=== PATIENT | female | born 1960 | race African-American/Black ===

== ENCOUNTER 2020-11-18 14:39 | Outpatient (REF) | payer MEDICARE, MEDICAID, SELFPAY | END 2020-11-18 14:40 | disposition home or self-care (01) | LOC: HO.LAB 14:39 | PROVIDERS: PCP Nurse Practitioner Primary Care; Visit Provider Internal Medicine | DX: Z79.01 Long term (current) use of anticoagulants (principal) | CPT/HCPCS: 99211 ==

== ENCOUNTER → 2020-11-25 15:31 | Outpatient (BNVA) | payer MEDICARE, MEDICAID, SELFPAY | PROVIDERS: PCP Internal Medicine Geriatric Medicine; Visit Provider Internal Medicine | DX: I48.20 Chronic atrial fibrillation, unspecified (principal); Z51.81 Encounter for therapeutic drug level monitoring; Z79.01 Long term (current) use of anticoagulants | CPT/HCPCS: 85610; 99211 ==

== ENCOUNTER → 2020-12-17 15:56 | Outpatient (BNVA) | payer MEDICARE, MEDICAID, SELFPAY | PROVIDERS: PCP Internal Medicine Geriatric Medicine; Visit Provider Internal Medicine | DX: I48.20 Chronic atrial fibrillation, unspecified (principal); Z51.81 Encounter for therapeutic drug level monitoring; Z79.01 Long term (current) use of anticoagulants | CPT/HCPCS: 85610; 99211 ==

== ENCOUNTER → 2021-01-13 15:58 | Outpatient (BNVA) | payer MEDICARE, MEDICAID, SELFPAY | PROVIDERS: PCP Nurse Practitioner Primary Care; Visit Provider Internal Medicine | DX: I48.20 Chronic atrial fibrillation, unspecified (principal); Z51.81 Encounter for therapeutic drug level monitoring; Z79.01 Long term (current) use of anticoagulants | CPT/HCPCS: 85610; 99211 ==

== ENCOUNTER → 2021-01-28 11:36 | Outpatient (BNVA) | payer MEDICARE, MEDICAID, SELFPAY | PROVIDERS: PCP Nurse Practitioner Primary Care; Visit Provider Internal Medicine | DX: I48.20 Chronic atrial fibrillation, unspecified (principal); Z51.81 Encounter for therapeutic drug level monitoring; Z79.01 Long term (current) use of anticoagulants | CPT/HCPCS: 85610; 99211 ==

== ENCOUNTER → 2021-02-25 11:31 | Outpatient (BNVA) | payer MEDICARE, MEDICAID, SELFPAY | PROVIDERS: PCP Nurse Practitioner Primary Care; Visit Provider Internal Medicine | DX: I48.20 Chronic atrial fibrillation, unspecified (principal); Z51.81 Encounter for therapeutic drug level monitoring; Z79.01 Long term (current) use of anticoagulants | CPT/HCPCS: 85610; 99211 ==

== ENCOUNTER → 2021-03-04 11:36 | Outpatient (BNVA) | payer MEDICARE, MEDICAID, SELFPAY | PROVIDERS: PCP Nurse Practitioner Primary Care; Visit Provider Internal Medicine | DX: I48.20 Chronic atrial fibrillation, unspecified (principal); Z79.01 Long term (current) use of anticoagulants; Z51.81 Encounter for therapeutic drug level monitoring | CPT/HCPCS: 85610; 99211 ==

== ENCOUNTER → 2021-04-06 11:45 | Outpatient (BNVA) | payer MEDICARE, MEDICAID, SELFPAY | PROVIDERS: PCP Nurse Practitioner Primary Care; Visit Provider Internal Medicine | DX: I48.20 Chronic atrial fibrillation, unspecified (principal); Z51.81 Encounter for therapeutic drug level monitoring; Z79.01 Long term (current) use of anticoagulants | CPT/HCPCS: 85610; 99211 ==

== ENCOUNTER → 2021-04-09 11:46 | Outpatient (BNVA) | payer MEDICARE, MEDICAID, SELFPAY | PROVIDERS: PCP Nurse Practitioner Primary Care; Visit Provider Internal Medicine | DX: I48.20 Chronic atrial fibrillation, unspecified (principal); Z51.81 Encounter for therapeutic drug level monitoring; Z79.01 Long term (current) use of anticoagulants | CPT/HCPCS: 85610; 99211 ==

== ENCOUNTER → 2021-04-21 11:37 | Outpatient (BNVA) | payer MEDICARE, MEDICAID, SELFPAY | PROVIDERS: PCP Nurse Practitioner Primary Care; Visit Provider Internal Medicine | DX: I48.20 Chronic atrial fibrillation, unspecified (principal); Z51.81 Encounter for therapeutic drug level monitoring; Z79.01 Long term (current) use of anticoagulants | CPT/HCPCS: 85610; 99211 ==

== ENCOUNTER → 2021-05-05 11:42 | Outpatient (BNVA) | payer MEDICARE, MEDICAID, SELFPAY | PROVIDERS: PCP Nurse Practitioner Primary Care; Visit Provider Internal Medicine | DX: I48.20 Chronic atrial fibrillation, unspecified (principal); Z51.81 Encounter for therapeutic drug level monitoring; Z79.01 Long term (current) use of anticoagulants | CPT/HCPCS: 85610; 99211 ==

== ENCOUNTER → 2021-06-09 11:33 | Outpatient (BNVA) | payer MEDICARE, MEDICAID, SELFPAY | PROVIDERS: PCP Nurse Practitioner Primary Care; Visit Provider Internal Medicine | DX: I48.20 Chronic atrial fibrillation, unspecified (principal); Z51.81 Encounter for therapeutic drug level monitoring; Z79.01 Long term (current) use of anticoagulants | CPT/HCPCS: 85610; 99211 ==

== ENCOUNTER → 2021-06-23 11:47 | Outpatient (BNVA) | payer MEDICARE, MEDICAID, SELFPAY | PROVIDERS: PCP Nurse Practitioner Primary Care; Visit Provider Internal Medicine | DX: I48.20 Chronic atrial fibrillation, unspecified (principal); Z51.81 Encounter for therapeutic drug level monitoring; Z79.01 Long term (current) use of anticoagulants | CPT/HCPCS: 85610; 99211 ==

== ENCOUNTER → 2021-07-21 10:55 | Outpatient (BNVA) | payer MEDICARE, MEDICAID, SELFPAY | PROVIDERS: PCP Nurse Practitioner Primary Care; Visit Provider Internal Medicine | DX: I48.20 Chronic atrial fibrillation, unspecified (principal); Z51.81 Encounter for therapeutic drug level monitoring; Z79.01 Long term (current) use of anticoagulants | CPT/HCPCS: 85610; 99211 ==

== ENCOUNTER → 2021-07-24 11:47 | Outpatient (BNVA) | payer MEDICARE, MEDICAID, SELFPAY | PROVIDERS: PCP Nurse Practitioner Primary Care; Visit Provider Internal Medicine | DX: I48.20 Chronic atrial fibrillation, unspecified (principal); Z51.81 Encounter for therapeutic drug level monitoring; Z79.01 Long term (current) use of anticoagulants | CPT/HCPCS: 85610; 99211 ==

== ENCOUNTER → 2021-07-28 11:46 | Outpatient (BNVA) | payer MEDICARE, MEDICAID, SELFPAY | PROVIDERS: PCP Nurse Practitioner Primary Care; Visit Provider Internal Medicine | DX: I48.20 Chronic atrial fibrillation, unspecified (principal); Z51.81 Encounter for therapeutic drug level monitoring; Z79.01 Long term (current) use of anticoagulants | CPT/HCPCS: 85610; 99211 ==

== ENCOUNTER → 2021-08-04 11:07 | Outpatient (BNVA) | payer MEDICARE, MEDICAID, SELFPAY | PROVIDERS: PCP Nurse Practitioner Primary Care; Visit Provider Internal Medicine | DX: I48.20 Chronic atrial fibrillation, unspecified (principal); Z51.81 Encounter for therapeutic drug level monitoring; Z79.01 Long term (current) use of anticoagulants | CPT/HCPCS: 85610; 99211 ==

== ENCOUNTER → 2021-08-11 11:39 | Outpatient (BNVA) | payer MEDICARE, MEDICAID, SELFPAY | PROVIDERS: PCP Nurse Practitioner Primary Care; Visit Provider Internal Medicine | DX: I48.20 Chronic atrial fibrillation, unspecified (principal); Z51.81 Encounter for therapeutic drug level monitoring; Z79.01 Long term (current) use of anticoagulants | CPT/HCPCS: 85610; 99211 ==

== ENCOUNTER → 2021-10-01 10:47 | Outpatient (BNVA) | payer MEDICARE, MEDICAID, SELFPAY | PROVIDERS: PCP Nurse Practitioner Primary Care; Visit Provider Internal Medicine | DX: I48.20 Chronic atrial fibrillation, unspecified (principal); Z79.01 Long term (current) use of anticoagulants; Z51.81 Encounter for therapeutic drug level monitoring | CPT/HCPCS: 85610; 99211 ==

== ENCOUNTER → 2022-02-02 11:42 | Outpatient (BNVA) | payer MEDICARE, MEDICAID, SELFPAY | PROVIDERS: PCP Nurse Practitioner Primary Care; Visit Provider Internal Medicine | DX: I48.20 Chronic atrial fibrillation, unspecified (principal); Z51.81 Encounter for therapeutic drug level monitoring; Z79.01 Long term (current) use of anticoagulants | CPT/HCPCS: 85610; 99211 ==

== ENCOUNTER → 2022-02-08 11:46 | Outpatient (BNVA) | payer MEDICARE, MEDICAID, SELFPAY | PROVIDERS: PCP Nurse Practitioner Primary Care; Visit Provider Internal Medicine | DX: I48.20 Chronic atrial fibrillation, unspecified (principal); Z79.01 Long term (current) use of anticoagulants; Z51.81 Encounter for therapeutic drug level monitoring | CPT/HCPCS: 85610; 99211 ==

== ENCOUNTER → 2022-02-11 11:22 | Outpatient (BNVA) | payer MEDICARE, MEDICAID, SELFPAY | PROVIDERS: PCP Nurse Practitioner Primary Care; Visit Provider Internal Medicine | DX: I48.20 Chronic atrial fibrillation, unspecified (principal); Z51.81 Encounter for therapeutic drug level monitoring; Z79.01 Long term (current) use of anticoagulants | CPT/HCPCS: 85610; 99211 ==

== ENCOUNTER → 2022-02-18 11:36 | Outpatient (BNVA) | payer MEDICARE, MEDICAID, SELFPAY | PROVIDERS: PCP Nurse Practitioner Primary Care; Visit Provider Internal Medicine | DX: I48.20 Chronic atrial fibrillation, unspecified (principal); Z51.81 Encounter for therapeutic drug level monitoring; Z79.01 Long term (current) use of anticoagulants | CPT/HCPCS: 85610; 99211 ==

== ENCOUNTER 2025-09-06 16:09 | Outpatient (REF) | payer MEDICARE, MEDICAID, SELFPAY ==
--- OUTSIDE RECORDS SUMMARY | 2025-09-03 19:00 | XMS_ITS | Encounter Summary ---
Author Organization [employer] Address [address] [place] [address] Care Team Providers Care Heel Sander Name Role Phone Queenie Martin MARLEN Primary Care Provider [phone] Reason for Referral * Imaging (Routine) - Authorized Specialty Diagnoses / Procedures Referred By Contac t Referred To Contact Radiology Diagnoses Cervical lymphadenopathy Procedures CT Soft Tissue Neck w/ Contrast Edelmira Aquino MD [address] [place] [phone] Phone: tel: fax: [facility] Referral ID Status Reason Start Date Expiration Date V isits Requested Visits Authorized [id number] Authorized 09/03/2025 09/03/2026 1 1 Encounter Details Date Type Department Care Team (Late st Contact Info) Description 09/03/2025 7:00 PM EDT Office Visit [facility] [address] [place] [phone] Edelmira Aquino MD [address] [place] [address] [phone] Moderate persistent asthma with acute exacerbation (Primary Dx); Cervical lymphadenopathy; RODRIGUES (dyspnea on exertion); Uncontrolled hypertension; COPD exacerbation (CMS/HCC) (HCC) Social History Tobacco Use Types Packs/Day Years Used Date Smoking Tobacco: Never Passive Smoke Exposure: Never Smokeless Tobacco: Never Alcohol Use Standard Drinks/Week Comments Not Currently 0 (1 standard drink = 0.6 oz pur e alcohol) Depression Answer Date Recorded Patient Health Questionnaire-9 Score 17 04/05/2025 Patient Health Questionnaire-9 Score 17 04/05/2025 Last PHQ-9: Questionnaire Data Not on file 0 04/05/2025 Housing Stability Answer Date Recorded What is your housing situation today? I have nir garibay 04/20/[address] you li ve. Do you have problems with any of the following? None of the above 04/20/2024 Food Insecurity Answer Date Recorded Within the past 12 months, y ou worried that your food would run out before you got money to buy more: Never True 04/20/2024 Within the past 12 months,th e food you bought just didn't last and you didn't have enough money to get more: Never True Transportation Answer Date Recorded In the past 12 months, has l ack of transportation kept you from medical appts, meetings, work or from getting things needed for daily living? No 04/20/2024 Utilities Answer Date Recorded In the past 12 months, has t he electric, gas, oil or water company threatened to shut off services in your home? No 04/20/2024 Depression Answer Date Recorded Patient Health Questionnaire-2 Score 4 04/05/2025 Internet Access Answer Date Recorded Internet Access Q1 Yes 03/29/2025 Internet Access Q2 Not on file 03/29/2025 Comments Unknown Sex and Gender Information Value Date Recorded Sex Assigned at Female 09/20/2022 10:19 AM EDT Legal Sex Female 10:19 AM EDT Gender Identity Female 09/20/2022 10:19 AM EDT Sexual Orientation Straight 09/20/2022 10 :19 AM EDT documented as of this encounter Last Filed Vital Signs Vital Sign Reading Time Taken Comments Blood Pressure 168/94 09/03/2025 6:59 PM EDT Pulse 68 09/03/2025 6:59 PM EDT Temperature 36.3 C (97.3 F) 09/03/2025 6:00 PM EDT Respiratory Rate 36 09/03/2025 6:00 PM EDT Oxygen Saturation 99% 09/03/2025 6:00 PM EDT Inhaled Oxygen Concentration - - Weight 72.6 kg (160 lb) 09/03/2025 6:00 PM EDT Height - - Body Mass Index 29.26 04/05/2025 1:38 PM EDT documented in this encounter Progress Notes * Beth Pfeiffer RN - 09/03/2025 7:00 PM EDT Pt arrived to walk in [place], states she has had ongoing shortness of breath and wheezing since the last time I was here Pt visibly short of breath with audible wheezing. States she has been checking O2 sats at home, and they have been running around 97%. Pt's RADHA elevated - 170/100, pt has history of high BP and reports she did take her BP med this am. States she has been using her inhaler with very little effect. Pt has family member with her, in triage room with head of bed elevated. Pt scheduled to see provider at 6 pm. * Edelmira Aquino MD - 09/03/2025 7:00 PM EDT SUBJECTIVE: Baltazar Guy is a 64 y.o. year old female who presents for Walk In Center/SOB. Denies recent illness, injury, or hospitalization. Acute Concerns: Patient here with her daughter for evaluation of progressive shortness of breath/RODRIGUES and dry cough for approximately 4 to 6 weeks. Her exercise tolerance is approximately half a block, she uses albuterol 3-4 times per day, she has not had any fever, no sputum production, no pleuritic chest pain andshe does not orthopnea. She denies smoking, using any recreational substances. Social History Social History Narrative Not on file Problem List[1] Family History[2] Review of Systems Constitutional: Positive for fatigue. Negative for chills and fever. HENT: Negative for congestion, ear pain, nosebleeds, rhinorrhea, sinus pressure, sore throat and trouble swallowing. Eyes: Negative for pain and discharge. Respiratory: Positive for cough, chest tightness and shortness of breath. Cardiovascular: Negative for chest pain, palpitations and leg swelling. Gastrointestinal: Negative for abdominal pain, blood in stool, constipation, diarrhea and nausea. Endocrine: Negative for polydipsia and polyuria. Genitourinary: Negative for dysuria, frequency, genital sores, pelvic pain and vaginal discharge. Musculoskeletal: Negative for back pain and neck pain. Skin: Negative for rash. Allergic/Immunologic: Negative for environmental allergies. Neurological: Negative for dizziness, seizures, weakness, light-headedness and headaches. Hematological: Negative for adenopathy. Psychiatric/Behavioral: Negative for agitation, behavioral problems, self-injury and suicidal ideas. OBJECTIVE: Vitals: 09/03/25 1859 BP: (!) 168/94 Pulse: 68 Resp: Temp: SpO2: Physical Exam HENT: Right Ear: Tympanic membrane and ear canal normal. Left Ear: Tympanic membrane and ear canal normal. Mouth/Throat: Mouth: Mucous membranes are moist. Pharynx: No oropharyngeal exudate or posterior oropharyngeal erythema. Eyes: Pupils: Pupils are equal, round, and reactive to light. Neck: Thyroid: Thyromegaly present. Cardiovascular: Rate and Rhythm: Regular rhythm. Pulses: Normal pulses. Heart sounds: Normal heart sounds. No murmur heard. Pulmonary: Breath sounds: Examination of the right-upper field reveals decreased breath sounds and wheezing. Examination of the left-upper field reveals decreased breath sounds and wheezing. Examination of the right-middle field reveals decreased breath sounds and wheezing. Examination of the left-middle field reveals decreased breath sounds and wheezing. Examination of the right-lower field reveals decreased breath sounds and wheezing. Examination of the left- lower field reveals decreased breath sounds and wheezing. Decreased breath sounds and wheezing present. Abdominal: General: Bowel sounds are normal. Palpations: Abdomen is soft. Tenderness: There is no abdominal tenderness. Musculoskeletal: General: Normal range of motion. Cervical back: Neck supple. Lymphadenopathy: Cervical: Cervical adenopathy (2 cm paratracheal, none mobile, nontender) present. Skin: General: Skin is warm. Neurological: General: No focal deficit present. Mental Status: She is alert and oriented to person, place, and time. Psychiatric: Mood and Affect: Mood normal. Behavior: Behavior normal. Problem List Items Addressed This Visit Moderate persistent asthma with acute exacerbation - Primary Rapid viral testing negative today, her O2 sat is within normal limits and patient is in not significant respiratory distress. Albuterol nebs x 1 today, continue every 4 hours as needed shortness of breath at home x 5 days then as needed only. Continue Breo twice daily Prednisone 40 mg today, continue Medrol pack at home Reminded to get CXR ordered by PCP last month I ordered labs to rule out CHF Relevant Medications albuterol (2.5 MG/3ML) 0.083% nebulizer solution 2.5 mg (Completed) predniSONE (Deltasone) tablet 40 mg (Completed) methylPREDNISolone (Medrol Dospak) 4 MG tablets Other Relevant Orders POCT Rapid Covid-19 BinaxNOW (Completed) Cervical lymphadenopathy Unknown reason, order CT scan of the neck and follow-up with PCP Relevant Orders CT Soft Tissue Neck w/ Contrast Uncontrolled hypertension Most likely related to asthma exacerbation No change in medications, follow-up with PCP Relevant Orders TSH with Reflex to Free T4 Other Visit Diagnoses RODRIGUES (dyspnea on exertion) Relevant Orders Basic Metabolic Panel B Type Natriuretic Peptide (BNP) COPD exacerbation (CMS/HCC) (HCC) Relevant Medications albuterol (2.5 MG/3ML) 0.083% nebulizer solution 2.5 mg (Completed) predniSONE (Deltasone) tablet 40 mg (Completed) insulin aspart FlexPen (NovoLOG) 100 UNIT/ML pen methylPREDNISolone (Medrol Dospak) 4 MG tablets pen needle 32G x 4 mm misc Follow Up: Medications Ordered Prior to Encounter[3] [1] Patient Active Problem List Diagnosis Benign hypertension Bilateral hearing loss Chest pain Chronic atrial fibrillation (CMS/HCC) (HCC) Chronic back pain Degeneration of lumbar intervertebral disc Depression Eczema Hyperlipidemia Left bundle branch block Moderate persistent asthma without complication Nonischemic cardiomyopathy (CMS/HCC) (HCC) Obesity Palpitations Recurrent major depression (CMS/HCC) SOBOE (shortness of breath on exertion) Spondylosis of lumbar spine Tinnitus Type 2 diabetes mellitus with hyperlipidemia (CMS/HCC) Long-term current use of opiate analgesic Asthma exacerbation Uncontrolled hypertension Moderate persistent asthma with acute exacerbation Cervical lymphadenopathy [2] No family history on file. [3] Current Outpatient Medications on File Prior to Visit Medication Sig Dispense Refill albuterol (2.5 MG/3ML) 0.083% nebulizer solution Take 3 mL (2.5 mg) by nebulization every 6 (six) hours if needed for wheezing. 75 mL 11 albuterol 108 (90 Base) MCG/ACT inhaler INHALE 2 PUFFS INTO THE LUNGS EVERY 4 TO 6 HOURS NEEDED 18 g 2 amLODIPine (Norvasc) 10 MG tablet TAKE 1 TABLET BY MOUTH EVERY DAY 90 tablet 3 atorvastatin (Lipitor) 40 MG tablet Take 1 tablet (40 mg) by mouth Once per day. 90 tablet 3 Blood Pressure kit 1 kit in the morning. 1 kit 0 carvedilol (Coreg) 12.5 MG tablet TAKE 1 TABLET (12.5 MG) BY MOUTH WITH BREAKFAST AND WITH EVENING MEAL. TAKE WITH FOOD. 180 tablet 1 Continuous Blood Gluc Structural [employer]ator Apprentice (FreeStyle Romel 2 [place]) device 1 each 5 (five) times a day. 1 each 0 Continuous Blood Gluc Sensor (FreeStyle Romel 2 Sensor) misc 1 each every 14 (fourteen) days. 6 each 3 D3 Super Strength 50 MCG (2000 UT) capsule TAKE 1 CAPSULE BY MOUTH EVERY DAY 90 capsule 3 Eliquis 5 MG tablet TAKE 1 TABLET BY MOUTH TWICE A DAY 60 tablet 2 empagliflozin (Jardiance) 25 MG Take 1 tablet (25 mg) by mouth Once per day. 90 tablet 3 fexofenadine (So) 180 MG tablet Take 1 tablet (180 mg) by mouth if needed each day (Allergies). 90 tablet 1 fluocinonide (Lidex) 0.05 % ointment Apply topically 2 times daily. As needed 60 g 1 fluticasone (Flonase) 50 MCG/ACT nasal spray Fluticasone Furoate-Vilanterol (Breo Ellipta) 200-25 MCG/ACT aerosol powder Inhale 1 each in the morning. 28 each 2 FREESTYLE LITE test strip TEST BLOOD SUGAR 2-3 TIMES DAILY 100 strip 11 gabapentin (Neurontin) 100 MG capsule Take 1 capsule once daily for 1 week, then 1 capsule twice daily for 1 week, then 1 capsule TID 90 capsule 1 HYDROcodone-acetaminophen (Roland) 10-325 MG tablet Take 1 tablet by mouth every 8 (eight) hours if needed for severe pain. Do not start before August 06, 2025. 84 tablet 0 hydrOXYzine HCl (Atarax) 25 MG tablet Take 1 tablet by mouth every 6 (six) hours. levalbuterol (Xopenex) 1.25 MG/3ML nebulizer solution INHALE 1 VIAL USING NEBULIZER EVERY FOUR TO SIX HOURS NEEDED 75 mL 0 losartan (Cozaar) 100 MG tablet Take 1 tablet (100 mg) by mouth Once per day. 90 tablet 1 melatonin 3 MG tablet metFORMIN XR (Glucophage-XR) 500 MG 24 hr tablet Take 2 tabs twice daily with meals. Do not crush, chew, or split. 360 tablet 1 Misc. Devices (Pulse Oximeter) [facility] [place] Used check oxygen level. If 92% or less, call 911 or go to hospital 1 each 0 montelukast (Singulair) 10 MG tablet TAKE 1 TABLET BY MOUTH EVERY DAY IN THE EVENING 90 tablet 3 Myrbetriq 25 MG 24 hr tablet Narcan 4 MG/0.1ML nasal spray Nebulizers misc 1 kit Every 4-6 hours as needed (wheezing/SOB). oxybutynin XL (Ditropan-XL) 10 MG 24 hr tablet Take 10 mg by mouth Once per day. sotalol AF (Betapace AF) 80 MG tablet Take 40 mg by mouth in the morning and 40 mg in the evening. Spacer/Aero-Holding Chambers (AeroChamber Mini Chamber) device tacrolimus (Protopic) 0.1 % ointment TRUEplus Lancets 33G mis TEST BLOOD SUGAR 2-3 TIMES DAILY 100 each 11 [DISCONTINUED] insulin aspart FlexPen (NovoLOG) 100 UNIT/ML pen Inject 4 Units under the skin with breakfast, with lunch, and with evening meal. 3 mL 0 [DISCONTINUED] pen needle 32G x 4 mm [facility] [place] Use as instructed TID 90 each 0 No current facility-administered medications on file prior to visit. documented in this encounter Miscellaneous Notes * Assessment & Plan Note - Edelmira Aquino MD - 09/03/2025 7:32 PM EDT Associated Problem(s): Cervical lymphadenopathy Unknown reason, order CT scan of the neck and follow-up with PCP * Assessment & Plan Note - Edelmira Aquino MD - 09/03/2025 7:32 PM EDT Associated Problem(s): Moderate persistent asthma with acute exacerbation Rapid viral testing negative today, her O2 sat is within normal limits and patient is in not significant respiratory distress. Albuterol nebs x 1 today, continue every 4 hours as needed shortness of breath at home x 5 days then as needed only. Continue Breo twice daily Prednisone 40 mg today, continue Medrol pack at home Reminded to get CXR ordered by PCP last month I ordered labs to rule out CHF * Assessment & Plan Note - Edelmira Aquino MD - 09/03/2025 7:30 PM EDT Associated Problem(s): Uncontrolled hypertension Most likely related to asthma exacerbation No change in medications, follow-up with PCP documented in this encounter Plan of Treatment Upcoming Encounters Date Type Department Care Team (Late st Contact Info) Description 09/19/2025 3:00 PM EDT Clinical Support [facility] [address] [place] [phone] Beba Cortez, RN [address] [place] [address] 10/08/2025 2:15 PM EST Office Visit [facility] MEDICINE [address] [place] [phone] Queenie Martin ANP [address] [place] [address] Scheduled Orders Name Type Priority Associated Diagnoses Orde r Schedule Basic Metabolic Panel Lab Routine RODRIGUES (dyspnea on exertion) Expected: 09/03/2025 (Approximate), Expires: 09/03/2026 B Type Natriuretic Peptide (BNP) Lab Routine RODRIGUES (dyspnea on exertion) Expected: 09/03/2025, Expires: 09/03/2026 TSH with Reflex to Free T4 Lab Routine Uncontrolled hypertension Expected: 09/03/2025 (Approximate), Expires: 09/03/2026 CT Soft Tissue Neck w/ Contrast Imaging Routine Cervical lymphadenopathy Expected: 09/03/2025 (Approximate), Expires: 09/03/2026 documented as of this encounter Procedures Procedure Name Priority Date/Time Associated Diagnosis Comments POCT RAPID COVID ANTIGEN Routine 09/03/2025 7:12 PM EDT Moderate persistent asthma with acute exacerbation documented in this encounter Results * POCT Rapid Covid-19 BinaxNOW (09/03/2025 7:12 PM EDT) Rapid COVID Ag Negative QC Media Lot # [id number] Lot# Expiration Date [id number] Swab 09/03/2025 7:12 PM EDT Edelmira Aquino MD POINT OF CARE TEST ENTER /EDIT ORDERABLES Final Result documented in this encounter Visit Diagnoses Diagnosis Moderate persistent asthma with acute exacerbation- Primary Cervical lymphadenopathy Enlargement of lymph nodes RODRIGUES (dyspnea on exertion) Other dyspnea and respiratory abnormality Uncontrolled hypertension COPD exacerbation (CMS/HCC) (HCC) Obstructive chronic bronchitis with exacerbation documented in this encounter Administered Medications Inactive Administered Medications - up to 3 most recent administrations Medication Order MAR Action Action Date Dose Rate Site albuterol (2.5 MG/3ML) 0.083% nebulizer solution 2.5 mg 2.5 mg, Nebulization, Once, On Tue09/03/25 at 1915, For 1 doseIndications:Moderate persistent asthma with acute exacerbation Given 09/03/2025 7:15 PM EDT 2.5 mg predniSONE (Deltasone) tablet 40 mg 40 mg, Oral, Once, On Tue09/03/25 at 1915, For 1 doseIndications:Moderate persistent asthma with acute exacerbation Given 09/03/2025 7:15 PM EDT 40 mg documented in this encounter Additional Health Concerns Assessment Noted Time PHQ-9 Depression Total Score: 17 025 2:34 PM EDT documented as of this encounter Care Teams Heel Sander Relationship Specialty Start Date End Date Queenie Martin ANP [address] [place] [phone] PCP - General Family Medicine 05/09/20 documented as of this encounter
--- OUTSIDE RECORDS SUMMARY | 2025-09-06 18:22 | XMS_ITS | Clinical Summary ---
Author Organization [employer] Address [address] [place] [address] Care Team Providers Care Armature Bander Name Role Phone Queenie Martin MARLEN Primary Care Provider [phone] Allergies Active Allergy Reactions Criticality Noted Date Comments Fish Allergy 12/01/2022 Other reaction(s): facial swelling, hives Lisinopril Cough 03/17/2011 Other 12/01/2022 Other reaction(s): congestion, sneezing Shellfish Allergy 12/01/2022 Other reaction(s): facial swelling, hives Dulaglutide Other 07/02/2024 Blurry vision Medications * This document contains information received from the source organization and may not represent a complete record from that organization. Spacer/Aero-Holdi ng Chambers (AeroChamber Mini Chamber) device Active fluticasone (Flonase) 50 MCG/ACT nasal spray Active hydrOXYzine HCl (Atarax) 25 MG tablet Take 1 tablet by mouth every 6 (six) hours. Active melatonin 3 MG tablet 022 Active Myrbetriq 25 MG 24 hr tablet Active Narcan 4 MG/0.1ML nasal spray Active oxybutynin XL (Ditropan-XL) 10 MG 24 hr tablet Take 10 mg by mouth Once per day. Active sotalol AF (Betapace AF) 80 MG tablet Take 40 mg by mouth in the morning and 40 mg in the evening. 022 Active levalbuterol (Xopenex) 1.25 MG/3ML nebulizer solutionIndicatio ns:Moderate persistent asthma without complication INHALE 1 VIAL USING NEBULIZER EVERY FOUR TO SIX HOURS NEEDED 75 mL 023 Active D3 Super Strength 50 MCG (1999 [place]) capsuleIndication s:Vitamin D deficiency TAKE 1 CAPSULE BY MOUTH EVERY DAY 90 capsule 3 023 Active Continuous Blood Gluc Mortar Maker (FreeStyle Romel 2 [place]) deviceIndications :Type 2 diabetes mellitus with hyperlipidemia (HCC) 1 each 5 (five) times a day. 1 each 023 Active Continuous Blood Gluc Sensor (FreeStyle Romel 2 Sensor) miscIndications:T ype 2 diabetes mellitus with hyperlipidemia (HCC) 1 each every 14 (fourteen) days. 6 each 3 023 Active Blood Pressure kitIndications:Be nign hypertension 1 kit in the morning. 1 kit 024 Active tacrolimus (Protopic) 0.1 % ointment 023 Active amLODIPine (Norvasc) 10 MG tabletIndications :Essential (primary) hypertension TAKE 1 TABLET BY MOUTH EVERY DAY 90 tablet 3 024 Active montelukast (Singulair) 10 MG tabletIndications :Moderate persistent asthma, uncomplicated TAKE 1 TABLET BY MOUTH EVERY DAY IN THE EVENING 90 tablet 3 024 Active albuterol (2.5 MG/3ML) 0.083% nebulizer solutionIndicatio ns:Exacerbation of persistent asthma, unspecified asthma severity Take 3 mL (2.5 mg) by nebulization every 6 (six) hours if needed for wheezing. 75 mL 11 025 2025 Active carvedilol (Coreg) 12.5 MG tablet TAKE 1 TABLET (12.5 MG) BY MOUTH WITH BREAKFAST AND WITH EVENING MEAL. TAKE WITH FOOD. 180 tablet 1 025 Active empagliflozin (Jardiance) 25 MGIndications:Typ e 2 diabetes mellitus with hyperlipidemia (HCC) Take 1 tablet (25 mg) by mouth Once per day. 90 tablet 3 025 2025 Active fexofenadine (So) 180 MG tabletIndications :Seasonal allergies Take 1 tablet (180 mg) by mouth if needed each day (Allergies). 90 tablet 1 025 Active atorvastatin (Lipitor) 40 MG tabletIndications :Type 2 diabetes mellitus with hyperlipidemia (HCC) Take 1 tablet (40 mg) by mouth Once per day. 90 tablet 3 025 Active fluocinonide (Lidex) 0.05 % ointmentIndicatio ns:Eczema, unspecified type Apply topically 2 times daily. As needed 60 g 1 025 Active albuterol 108 (90 Base) MCG/ACT inhalerIndication s:Moderate persistent asthma without complication INHALE 2 PUFFS INTO THE LUNGS EVERY 4 TO 6 HOURS NEEDED 18 g 2 025 Active Eliquis 5 MG tabletIndications :Chronic atrial fibrillation (CMS/HCC) ([facility]) TAKE 1 TABLET BY MOUTH TWICE A DAY 60 tablet 2 025 Active losartan (Cozaar) 100 MG tabletIndications :Hypertension associated with diabetes ([facility]) Take 1 tablet (100 mg) by mouth Once per day. 90 tablet 1 025 Active Fluticasone Furoate-Vilantero l (Breo Ellipta) 200-25 MCG/ACT aerosol powderIndications :Exacerbation of persistent asthma, unspecified asthma severity Inhale 1 each in the morning. 28 each 2 025 Active metFORMIN XR (Glucophage-XR) 500 MG 24 hr tabletIndications :Type 2 diabetes mellitus with hyperlipidemia (HCC) Take 2 tabs twice daily with meals. Do not crush, chew, or split. 360 tablet 1 025 Active Nebulizers misc 1 kit Every 4-6 hours as needed (wheezing/SOB). Active Misc. Devices (Pulse Oximeter) miscIndications:C OPD exacerbation (CMS/HCC) ([facility]) Used check oxygen level. If 92% or less, call 911 or go to hospital 1 each 025 Active TRUEplus Lancets 33G miscIndications:T ype 2 diabetes mellitus with hyperglycemia ([facility]) TEST BLOOD SUGAR 2-3 TIMES DAILY 100 each 025 Active FREESTYLE LITE test stripIndications: Type 2 diabetes mellitus with hyperglycemia ([facility]) TEST BLOOD SUGAR 2-3 TIMES DAILY 100 strip 025 Active insulin aspart FlexPen (NovoLOG) 100 UNIT/ML penIndications:CO PD exacerbation (CMS/HCC) ([facility]) Use tid AC meals according to sliding scale: 150-200: 2u 201-250: 4u 251-300: 6u 301-350: 8u 351-400:10u 401-450:12 U and call PCP 3 mL Active methylPREDNISolon e (Medrol Dospak) 4 MG tablets Follow schedule on package instructions 21 tablet 2024 Active pen needle 32G x 4 mm miscIndications:C OPD exacerbation (CMS/HCC) ([facility]) Use as instructed TID 90 each 2025 Active gabapentin (Neurontin) 100 MG capsuleIndication s:Chronic migraine without aura without status migrainosus, not intractable TAKE 1 CAPSULE BY MOUTH 3 TIMES DAILY 90 capsule 1 Active HYDROcodone-aceta minophen (Lansdale) 10-325 MG tabletIndications :Other chronic pain TAKE 1 TABLET BY MOUTH EVERY 8 HOURS NEEDED FOR SEVERE PAIN 84 tablet Active gabapentin (Neurontin) 100 MG capsuleIndication s:Chronic migraine without aura without status migrainosus, not intractable Take 1 capsule once daily for 1 week, then 1 capsule twice daily for 1 week, then 1 capsule TID 90 capsule 1 025 2024 Discontinued amoxicillin-clavu lanate (Augmentin) 875-125 MG tabletIndications :COPD exacerbation (CMS/HCC) ([facility]) Take 1 tablet by mouth 2 times daily for 7 days. Take with food 14 tablet 025 2024 HYDROcodone-aceta minophen (L[place]dale) 10-325 MG tabletIndications :Other chronic pain Take 1 tablet by mouth every 8 (eight) hours if needed for severe pain. Do not start before August 06, 2025. 84 tablet 025 2024 Discontinued predniSONE (Deltasone) 10 MG tabletIndications :COPD exacerbation (CMS/HCC) ([facility]) Take 4 tablets (40 mg) by mouth Once daily for 3 days, THEN 2 tablets (20 mg) Once daily for 4 days, THEN 1 tablet (10 mg) Once per day for 4 days, THEN 0.5 tablets (5 mg) Once per day for 4 days. 26 tablet 025 2024 insulin aspart FlexPen (NovoLOG) 100 UNIT/ML penIndications:CO PD exacerbation (CMS/HCC) ([facility]) Inject 4 Units under the skin with breakfast, with lunch, and with evening meal. 3 mL 025 2024 Discontinued(R eorder (will not trigger notification to Pharmacy)) pen needle 32G x 4 mm miscIndications:C OPD exacerbation (CMS/[facility]) ([facility]) Use as instructed TID 90 each 025 2024 Discontinued(R eorder (will not trigger notification to Pharmacy)) guaiFENesin-codei ne (Robitussin-AC) 100-10 MG/5ML syrupIndications: Cough in adult patient Take 10 mL by mouth if needed in the morning, at noon, in the evening, and at bedtime for cough for up to 5 days. 237 mL 025 2024 Hospital, Clinic, or Other Facility Administered Medication Ordered Dose Route Frequency Start Date End Date Status albuterol (2.5 MG/3ML) 0.083% nebulizer solution 2.5 mgIndications:Modera te persistent asthma with acute exacerbation 2.5 mg NEBULIZATION Once 09/03/2025 09/03/2025 Ended predniSONE (Deltasone) tablet 40 mgIndications:Modera te persistent asthma with acute exacerbation 40 mg PO Once 09/03/2025 09/03/2025 Ended Active Problems Problem Noted Date Diagnosed Date Moderate persistent asthma with acute exacerbati on 09/03/2025 Assessment & Plan (09/03/2025 7:32 PM EDT): Rapid viral testing negative today, her O2 [...] I ordered labs to rule out CHF Cervical lymphadenopathy 09/03/2025 Assessment & Plan (09/03/2025 7:32 PM EDT): Unknown reason, order CT scan of the neck and follow-up with PCP Asthma exacerbation 02/08/2025 Assessment & Plan (02/08/2025 4:03 PM EDT): Patient educated to avoid asthma triggers Prednisone 60 mg for 5 days prescribed albuterol solution for nebulization at home every 6 hours as needed prescribed Uncontrolled hypertension 02/08/2025 Assessment & Plan (09/03/2025 7:30 PM EDT): Most likely related to asthma exacerbation No change in medications, follow-up with PCP Assessment & Plan (02/08/2025 4:08 PM EDT): I advised low-sodium diet I will prescribe at office clonidine 0.2 mg stat after 45 minutes blood pressure improved to 182 /90 patient reports she feels okay no chest pain palpitations weakness, patient has a BP cuff at home I am asked to monitor blood pressure at home and if it is persistently high to report back or go to emergency room, she will come back in 1 weeks for nurse visit for BP check plan is if blood pressure persistently out of goal to add hydralazine 10 mg every 6 hours follow-up with PCP for a sooner appointment ED precautions were reviewed with patient if blood pressure is persistently higher than 160/100 or has red flag symptoms may need today emergency room pr call EMS Long-term current use of opiate analgesic 2023 Overview (11/28/2023): Frequent cancellations for EMERGENCY COMMUNICATIONS OFFICER appts Pt cancelled 12/07, 02/18, 03/09, 03/10 and NCNS 07/07 and 07/20 for EMERGENCY COMMUNICATIONS OFFICER Chest pain 12/01/2022 Chronic back pain 12/01/2022 Depression 12/01/2022 Moderate persistent asthma without complication 12/01/2022 Nonischemic cardiomyopathy (CMS/HCC) 12/01/2022 Overview (11/28/2023): Follows w/ cardiology Palpitations 12/01/2022 SOBOE (shortness of breath on exertion) 12/01/19 23 Spondylosis of lumbar spine 12/01/2022 Overview (12/01/2022): on MRI from 2007: L3-L4, L4-L5 and L5-S1 Type 2 diabetes mellitus with hyperlipidemia (CM S/HCC) 12/01/2022 Overview (11/28/2023): And HTN Overdue for eye exam Metformin 500mg 1 tab AM, 2 tabs PM Trulicity 1.5mg/wk On statin/ARB Not on ASA, is on eliquis Foot exam Chronic atrial fibrillation (CMS/HCC) 05/07/2021 Bilateral hearing loss 10/11/2017 Eczema 10/08/2013 Left bundle branch block 08/13/2009 Benign hypertension 1959 Overview (11/28/2023): Follows w/ cardiology, takes both sotalol and carvedilol, confirmed this w/ pharmacy and cards Carvedilol 12.5mg BID Sotalol 40mg BID Amlodipine 10mg qd Losartan 100mg every day (could not tolerate propranolol d/t resp sx) Degeneration of lumbar intervertebral disc 11/21 Hyperlipidemia 1959 Obesity 1959 Recurrent major depression 1959 Tinnitus 1959 Resolved Problems Problem Noted Date Diagnosed Date Resolved Date COVID-19 12/01/2022 11/28/2023 Encounters Date Type Department Care Team Description 09/05/2025 Refill [facility] [address] [place] [address] Queenie Martin ANP Other chronic pain 09/04/2025 Refill [facility] [address] [place] [address] Queenie Martin ANP Chronic migraine without aura without status migrainosus, not intractable 09/03/2025 7:00 PM EDT Office Visit [facility] [address] [place], [place] [phone] Edelmira Aquino MD Moderate persistent asthma with acute exacerbation (Primary Dx); Cervical lymphadenopathy; RODRIGUES (dyspnea on exertion); Uncontrolled hypertension; COPD exacerbation (CMS/HCC) (HCC) 09/02/2025 Telephone [facility] [address] [place] [phone] Jazmín Kaye, RN Status Check 08/30/[address] [facility] [address] [place] [address] Beba Cortez, FABIEN 08/30/2025 Telephone [facility] [address] [place] [phone] Queenie Martin ANP Appointment Request 08/15/2025 Orders Only [facility] [address] [place] [phone] Queenie Martin ANP Cough in adult patient (Primary Dx) 08/15/2025 Telephone [facility] [address] [place] [phone] Queenie Martin ANP Nurse Triage 08/14/2025 Travel 08/13/2025 Telephone [facility] [address] [place] [phone] Queenie Martin ANP chart prep 08/12/2025 Telephone [facility] [address] [place] [phone] Queenie Martin ANP Med Refill 08/11/2025 Refill [facility] [address] [place] [phone] Queenie Martin ANP Hypertension associated with diabetes ([facility]/HCC) 08/08/2025 Telephone [facility] [address] [place] [phone] Queenie Martin ANP Paperwork/Forms 08/07/[address] [facility] [address] [place] [address] Beba Cortez, RN Other chronic pain 08/07/2025 Refill [facility] [address] [place] [address] Queenie Martin ANP Type 2 diabetes mellitus with hyperglycemia (CMS/HCC) 08/06/2025 Telephone [facility] [address] [place] [phone] Queenie Martin ANP 08/05/2025 Telephone [facility] [address] [place] [address] Queenie Martin ANP 08/02/2025 Telephone [facility] [address] [place] [address] Queenie Martin ANP 08/02/[address] [facility] [address] [place] [address] Beba Cortez, FABIEN EMERGENCY COMMUNICATIONS OFFICER 08/02/2025 Telephone [facility] [address] [place] [address]j[address] [place] [address] Kimberly Loya RN Status Check 08/02/[address] [facility] [address] [place] [address] Beba Cortez, FABIEN EMERGENCY COMMUNICATIONS OFFICER 08/01/2025 Orders Only [facility] [address] [place] [address] [address] Queenie Martin ANP Other chronic pain 08/01/2025 Orders Only [facility] [address] [place] [address] [place] [address] Queenie Martin ANP COPD exacerbation (CMS/HCC) (Primary Dx) 07/19/2025 Telephone [facility] [address] [place] [address] Jazmín Kaye RN Respiratory Status Check 07/18/[address] [address] Queenie Martin ANP Nurse Triage 07/18/[address] [address] Queenie Martin ANP Appointment Request 07/16/2025 1:15 PM EDT Office Visit [address] [address] Queenie Martin ANP Hypertension associated with diabetes (CMS/HCC) (Primary Dx); Type 2 diabetes mellitus with hyperlipidemia (CMS/HCC) ; Nonischemic cardiomyopathy (CMS/HCC); Exacerbation of persistent asthma, unspecified asthma severity; Long-term current use of opiate analgesic 07/16/2025 Travel 07/16/2025 Refill [facility] [place] [address] Queenie Martin ANP Chronic atrial fibrillation (CMS/HCC) 07/11/[address] [phone] Queenie Martin ANP Nurse Triage 07/11/2025 Refill [facility] [address] [place] [phone] Queenie Martin ANP Moderate persistent asthma without complication 07/11/2025 Refill [facility] [address], [place] [phone] Beba Cortez RN Other chronic pain 07/10/[address] [facility] [address], [place] [phone] Queenie Martin ANP 06/11/[address] [facility] [address], [place] [phone] Queenie Martin ANP Other chronic pain from Last 3 Months Immunizations Immunization Administration Dates Next Due Influenza injectable quadriv alent IIV4 with preservative 08/23/2018,10/11/2017 Influenza injectable quadriv alent preservative free 12/23/2023,08/19/2021,12/12/2019,01/11,09/30/2015 Influenza, IIV3, injectable 09/30/2014, 3,08/20/2009 Influenza, Split (incl. maritza fied surface antigen) 10/08/2013 Pneumococcal Conjugate PCV 20 12/23/2023 Pneumococcal Polysaccharide PPSV23 07/21/2009 TD (adult), 2 Lf tetanus tox oid, preservative free, adsorbed 07/21/2009 Tdap 10/08/2013 Social History Tobacco Use Types Packs/Day Years [...] Orientation Straight 09/20/2022 10 :19 AM EDT Last Filed Vital Signs Vital Sign Reading Time Taken Comments Blood Pressure 168/94 09/03/2025 6:59 PM EDT Pulse 68 09/03/2025 6:59 PM EDT Temperature 36.3 C (97.3 F) 09/03/2025 6:00 PM EDT Respiratory Rate 36 09/03/2025 6:00 PM EDT Oxygen Saturation 99% 09/03/2025 6:00 PM EDT Inhaled Oxygen Concentration - - Weight 72.6 kg (160 lb) 09/03/2025 6:00 PM EDT Height 157.5 cm (5' 2 ) 04/05/2025 1:38 PM EDT Body Mass Index 29.26 04/05/2025 1:38 PM EDT Plan of Treatment Upcoming Encounters Date Type Department Care Team (Late st Contact Info) Description 09/19/2025 3:00 PM EDT Clinical Support [facility] [address] [place] [address] Beba Cortez, FABIEN [address] [place] [address] 10/08/2025 2:15 PM EST Office Visit [facility] [address] [place] [phone] Queenie Martin, ANP [address] [facility] [place] [address] Health Maintenance Due Date Last Done Comments CT Colonography 1959 FIT DNA/Cologuard 1959 FIT 1959 FOBT 1959 Sigmoidoscopy 1959 Eye Exam 1969 Mammogram 1999 Zoster Vaccines (1 of 2) 2009 HPV/Cotest 07/03/2015 Pap Smear 07/03/2015 07/03/2012 RSV Patients and Patients Aged 60 years or older (1 - Risk 60-74 years 1-dose series) 2019 Colonoscopy 05/11/2022 05/11/2012 Colorectal Cancer Screening 05/11/2022 Diabetes: Urine Protein Screening 03/12/2023 03/12/2022, 10/10/2020 Lipid Panel 03/12/2023 03/12/2022 DTaP/Tdap/Td Vaccines (2 - Td or Tdap) 10/08/2023 10/08/2013, 07/21/2009 Diabetes: Foot Exam 12/23/2024 12/23/2023, 4 COVID-19 Vaccine ( season) 2025 Influenza Vaccine (#1) 2025 4, 08/19/2021, 12/12/2019, Additional history exists Depression Monitoring 10/06/2025 04/05/2025, 025 Diabetes: Hemoglobin A1C 10/16/2025 025, 04/05/2025, 04/11/2024, Additional history exists SDOH Screening 03/29/2026 03/29/2025 Alcohol/Substance Use Screening 04/05/2026 04/05/2025 Tobacco Screening 07/16/2026 07/16/2025 Hepatitis C Screening Completed 12/25/2019 Pneumococcal Vaccine: 50+ Years Completed 12/23/2023, 07/21/2009 Cervical Cancer Screening Discontinued HIB Vaccines Aged Out No longer eligi ble based on patient's age to complete this topic HPV Vaccines Aged Out No longer eligi ble based on patient's age to complete this topic Hepatitis A Vaccines Aged Out No long er eligible based on patient's age to complete this topic Hepatitis B Vaccines Aged Out No long er eligible based on patient's age to complete this topic IPV Vaccines Aged Out No longer eligi ble based on patient's age to complete this topic Meningococcal B Vaccine Aged Out No l onger eligible based on patient's age to complete this topic Meningococcal Vaccine Aged Out No ammon fabienne eligible based on patient's age to complete this topic RSV under 20 months Aged Out No longe r eligible based on patient's age to complete this topic Rotavirus Vaccines Aged Out No longer eligible based on patient's age to complete this topic Procedures Procedure Name Priority Date/Time Associated Diagnosis Comments POCT RAPID COVID ANTIGEN Routine 09/03/2025 7:12 PM EDT Moderate persistent asthma with acute exacerbation POCT GLYCATED HEMOGLOBIN, TOTAL Routine 07/16/2025 1:43 PM EDT Type 2 diabetes mellitus with hyperlipidemia (CMS/HCC) POCT GLUCOSE Routine 07/16/2025 1:43 PM EDT Type 2 diabetes mellitus with hyperlipidemia (CMS/HCC) ALBUMIN, RANDOM URINE W/CREATININE Routine 03/12/2022 1:46 PM EDT LIPID PANEL, STANDARD Routine 03/12/2022 1:46 PM EDT ZZZ HISTORICAL HEPATITIS C ANTIBODY RFLX Routine 12/25/2019 1:30 PM EST HM PAP/HPV Routine 07/03/2012 HM COLONOSCOPY Routine 05/11/2012 from Last 3 Months or Most Recently Relevant to Health Maintenance Results * POCT Rapid Covid-19 BinaxNOW (09/03/2025 7:12 PM EDT) [facility] Rapid COVID Ag Negative QC Media Lot # [id number] Lot# Expiration Date [id number] Swab 09/03/2025 7:12 PM EDT Edelmira Aquino MD POINT OF CARE TEST ENTER /EDIT ORDERABLES Final Result * (ABNORMAL) POCT HGB A1C (07/16/2025 1:43 PM EDT) Pathologist [facility] Hemoglobin A1C 9.0(A) 4.0 - 5.7 % QC Media Lot # [id number] Lot# Expiration Date ,027 Blood 07/16/2025 1:43 PM EDT Queenie GEE POINT OF CARE TEST ENTER/EDIT OR DERABLES Final Result * POCT Glucose (07/16/2025 1:43 PM EDT) Pathologist [facility] Glucose Blood, POC 161 60 - 200 mg/dL QC Media Lot # [id number] Lot# Expiration Date 2705,026 Blood Capillary blood specimen / Unknown 07/16/2025 1:43 PM EDT Queenie GEE POINT OF CARE TEST ENTER/EDIT OR DERABLES Final Result * (ABNORMAL) ALBUMIN, RANDOM URINE W/CREATININE (03/12/2022 1:46 PM EDT) [facility] Microalbumin Urine 10.7 See Note: mg/dL [facility] Comment: Reference Range: Reference Range Not established Microalb/Creat Ratio 115(H) <30 mcg/mg creat [facility] Comment: The ADA defines abnormalities in albumin excretion as follows: Albuminuria Category Result (mcg/mg creatinine) Normal to Mildly increased <30 Moderately increased 30-299 Severely increased > OR = 300 The ADA recommends that at least two of three specimens collected within a 3-6 month period be abnormal before considering a patient to be within a diagnostic category. Creatinine, Urine 93 20 - 275 mg/dL [facility] 03/12/2022 1:46 PM EDT us Queenie GEE LAB URINE ORDERABLES Final Resul t [facility] [address] [phone], * (ABNORMAL) LIPID PANEL, STANDARD (03/12/2022 1:46 PM EDT) Chol/HDLC Ratio 4.3 <5.0 (calc) [facility] Cholesterol, Total 225(H) <200 mg/dL [facility] HDL Cholesterol 52 > OR = 50 mg/dL [facility] LDL Cholesterol 145(H) mg/dL (calc) [facility] Comment: Reference range: <100 Desirable range <100 mg/dL for primary prevention; <70 mg/dL for patients with CHD or diabetic patients with > or = 2 CHD risk factors. LDL-C is now calculated using the Lacie calculation, which is a validated novel method providing better accuracy than the Friedewald equation in the estimation of LDL-C. Mehdi ZALDIVAR et al. LAN. 2013;310(19): 5682-4468 (http://education.[employer].Naow/faq/UBR079) Non-HDL Cholesterol 173(H) <130 mg/dL (calc) [facility] Comment: For patients with diabetes plus 1 major ASCVD risk factor, treating to a non-HDL-C goal of <100 mg/dL (LDL-C of <70 mg/dL) is considered a therapeutic option. Triglycerides 152(H) <150 mg/dL [facility] 03/12/2022 1:46 PM EDT [facility] LAB BLOOD ORDERABLES Final Resul t Performing Organization Address [facility] Co de Phone Number [facility] [address] [place] [address], * HEPATITIS C ANTIBODY RFLX (12/25/2019 1:30 PM EST) HEPATITIS C ANTIBODY NONREACTIVE NONREACTIVE [facility] Comment: Antibodies to HCV not detected; does not exclude early acute HCV infection. 12/25/2019 1:30 PM EST Historical Provider MD HISTORICAL/NON ORDERABLE LABS Final Result Performing Organization Address [facility]/ZIP Co de Phone Number [facility] [address] [place] [address], [place] * Hm Pap Smear (07/03/2012) Pap Negative for intraephithelial lesion or malignancy Negative for intraephithelial lesion or malignancy, Other us Historical Provider HEALTH MAINTENANCE Final Result * Colonoscopy (05/11/2012) Colonoscopy Normal Normal us Historical Provider HEALTH MAINTENANCE Final Result from Last 3 Months or Most Recently Relevant to Health Maintenance Insurance [address] [place] [address] [facility] STANDARD MEDICARE [address] [place] [address] Care Teams Armature Bander Relationship Specialty Start Date End Date Queenie Martin ANP [address] [place] [address] PCP - General Family Medicine 05/09/20
--- OUTSIDE RECORDS SUMMARY | 2025-09-06 18:22 | XMS_ITS | Encounter Summary ---
Author Organization [employer] Address [address] [facility] [facility] [address] [address] 7t [place] [address] Care Team Providers Care Backroom Associate Name Role Phone Queenie Martin Primary Care Provider [phone] Reason for Visit * Reason Onset Date Comments Appointment Request 08/30/2025 Encounter Details Date Type Department Care Team ([facility] st Contact Info) Description 08/30/2025 Telephone [facility] MEDICINE [address] [place], [place] [phone] Queenie Martin ANP 230 [place], [place] [phone] Appointment Request Social History Tobacco Use Types Packs/Day Years [...] AM EDT documented as of this encounter Miscellaneous Notes * Telephone Encounter - Donte Rivera - 08/30/2025 10:59 AM EDT Tc from pt requesting to reschedule today's TRANSITIONS RN CARE COORDINATOR visit. Please contact pt at [phone]. documented in this encounter Plan of Treatment Upcoming Encounters Date Type Department Care Team ([facility] st Contact Info) Description 09/19/2025 3:00 PM EDT Clinical Support [facility] MED & PEDS 505 [place] [address] Beba Cortez, FABIEN 505 [place] [address] 10/08/2025 2:15 PM EST Office Visit [facility] MEDICINE [address] [place] [address] Queenie Martin ANP 230 [place] [address] documented as of this encounter Visit Diagnoses Not on filedocumented in this encounter Additional Health Concerns Assessment Noted Time PHQ-9 Depression Total Score: 17 025 2:34 PM EDT documented as of this encounter Care Teams Backroom Associate Relationship Specialty Start Date End Date Queenie Martin ANP [address] [place] [address] PCP - General Family Medicine 05/09/20 documented as of this encounter
--- OUTSIDE RECORDS SUMMARY | 2025-09-06 18:22 | XMS_ITS | Encounter Summary ---
Author Organization [employer] Address [address] 7t [place] [address] Care Team Providers Care Manager Digital Ad Operations Name Role Phone Queenie Martin Primary Care Provider [phone] Reason for Visit * Reason Comments Med Refill Encounter Details Date Type Department Care Team ([facility] st Contact Info) Description 08/11/2025 Refill [facility] MEDICINE 230 [place], [place] [phone] Queenie Martin ANP 230 [place] [address] Hypertension associated with diabetes (CMS/HCC) Social History Tobacco Use Types Packs/Day Years [...] AM EDT documented as of this encounter Plan of Treatment Upcoming Encounters Date Type Department Care Team (Late st Contact Info) Description 09/19/2025 3:00 PM EDT Clinical Support [facility] CHC MED & PEDS 505 [place] [address] Beba Cortez, RN 505 [place] [address] 10/08/2025 2:15 PM EST Office Visit [facility] MEDICINE [address] [place] [address] Queenie Martin ANP 230 [place] [address] documented as of this encounter Visit Diagnoses Diagnosis Hypertension associated with diabetes (HCC) Unspecified essential hypertension documented in this encounter Additional Health Concerns Assessment Noted Time PHQ-9 Depression Total Score: 17 025 2:34 PM EDT documented as of this encounter Care Teams Manager Digital Ad Operations Relationship Specialty Start Date End Date Queenie Martin ANP [address] [place] [address] PCP - General Family Medicine 05/09/20 documented as of this encounter
--- OUTSIDE RECORDS SUMMARY | 2025-09-06 18:22 | XMS_ITS | Encounter Summary ---
Author Organization [employer] Address [address] 7t [place] [address] Care Team Providers Care E Commerce Strategist Name Role Phone Queenie Martin Primary Care Provider [phone] Reason for Visit * Reason Comments Med Refill Encounter Details Date Type Department Care Team ([facility] st Contact Info) Description 09/05/2025 Refill [facility] MEDICINE 230 [place], [place] [phone] Queenie Martin ANP 230 [place] [address] Other chronic pain Social History Tobacco Use Types Packs/Day Years [...] encounter Miscellaneous Notes * Telephone Encounter - Kimberly Loya RN - 09/05/2025 4:11 PM EDT CAR DUMPER OPERATOR reviewed. PT last picked up 28 day supply of [place] 08/08/25. Earliest fill date today 09/05/25. Upcoming PROMOTIONAL REPRESENTATIVE visit scheduled for 09/19/25. Refill appropriate. Queued. documented in this encounter Plan of Treatment Upcoming Encounters Date Type Department Care Team (Late st Contact Info) Description 09/19/2025 3:00 PM EDT Clinical Support [facility] CHC MED & PEDS 505 [place] [address] Beba Cortez, RN 505 [place] [address] 10/08/2025 2:15 PM EST Office Visit [facility] MEDICINE 230 [place] [address] Queenie Martin ANP 230 [place] [address] documented as of this encounter Visit Diagnoses Diagnosis Other chronic pain documented in this encounter Additional Health Concerns Assessment Noted Time PHQ-9 Depression Total Score: 17 025 2:34 PM EDT documented as of this encounter Care Teams E Commerce Strategist Relationship Specialty Start Date End Date Queenie Martin ANP 230 [place] [address] PCP - General Family Medicine 05/09/20 documented as of this encounter
--- OUTSIDE RECORDS SUMMARY | 2025-09-06 18:22 | XMS_ITS | Encounter Summary ---
Author Organization [employer] Address [address] [facility] [address] [facility] [address] 7t [place] [address] Care Team Providers Care Salesperson Driver Name Role Phone Queenie Martin Primary Care Provider [phone] Reason for Visit * Reason Comments Med Refill Encounter Details Date Type Department Care Team ([facility] st Contact Info) Description 12/25/2024 Refill [facility] MEDICINE 230 [place], [place] [phone] Queenie Martin ANP 230 [place] [address] Type 2 diabetes mellitus with hyperlipidemia ([facility]/HCC) Social History Tobacco Use Types Packs/Day Years Used Date Smoking Tobacco: Never Passive Smoke Exposure: Never Smokeless Tobacco: Never Alcohol Use Standard Drinks/Week Comments Not Currently 0 (1 standard drink = 0.6 oz pur e alcohol) Depression Answer Date Recorded Patient Health Questionnaire-9 Score 6 04/20/2024 Patient Health Questionnaire-9 Score 6 04/20/2024 Last PHQ-9: Questionnaire Data Not on file 0 04/20/2024 Housing Stability Answer Date Recorded What is [...] Answer Date Recorded Patient Health Questionnaire-2 Score 1 04/20/2024 Comments Unknown Sex and Gender Information Value [...] Description 09/19/2025 3:00 PM EDT Clinical Support [facility] CH[facility] MED & PEDS 505 [place] [address] Beba Cortez, RN 505 [place] [address] 10/08/2025 2:15 PM EST Office Visit [facility] MEDICINE 230 [place] [address] Queenie Martin ANP 230 [place] [address] documented as of this encounter Visit Diagnoses Diagnosis Type 2 diabetes mellitus with hyperlipidemia (CMS/HCC) documented in this encounter Additional Health Concerns Assessment Noted Time PHQ-9 Depression Total Score: 6 04/20/20 24 1:23 PM EDT documented as of this encounter Care Teams Salesperson Driver Relationship Specialty Start Date End Date Queenie Martin ANP [address] [place] [address] PCP - General Family Medicine 05/09/20 documented as of this encounter
--- OUTSIDE RECORDS SUMMARY | 2025-09-06 18:22 | XMS_ITS | Encounter Summary ---
Author Organization [employer] Address [address] [address] 7[address] [place] [address] Care Team Providers Care Rating Officer Name Role Phone Queenie Martin Primary Care Provider [phone] Reason for Visit * Reason Comments Med Refill Encounter Details Date Type Department Care Team ([facility] st Contact Info) Description 09/04/[address] [facility] MEDICINE 230 [place], [place] [phone] Queenie Martin ANP 230 [place] [address] Chronic migraine without aura without status migrainosus, not intractable Social History Tobacco Use Types Packs/Day Years [...] Description 09/19/2025 3:00 PM EDT Clinical Support [facility] CHC MED & PEDS 505 [place] [address] Beba Cortez, RN 505 [place] [address] 10/08/2025 2:15 PM EST Office Visit [facility] MEDICINE [address] [place] [address] Queenie Martin ANP [address] [place] [address] documented as of this encounter Visit Diagnoses Diagnosis Chronic migraine without aura without status migrainosus, not intractable documented in this encounter Additional Health Concerns Assessment Noted Time PHQ-9 Depression Total Score: 17 025 2:34 PM EDT documented as of this encounter Care Teams Rating Officer Relationship Specialty Start Date End Date Queenie Martin ANP [address] [place] [address] PCP - General Family Medicine 05/09/20 documented as of this encounter
--- OUTSIDE RECORDS SUMMARY | 2025-09-06 18:23 | XMS_ITS | Encounter Summary ---
Author Organization [employer] Address [address] 7t [place] [address] Care Team Providers Care Leg Man Name Role Phone Queenie Martin Primary Care Provider [phone] Reason for Visit * Reason Onset Date Comments Nurse Triage 02/06/2025 Encounter Details Date Type Department Care Team (Late st Contact Info) Description 02/06/2025 Telephone [facility] MEDICINE 230 [place], [place] [phone] Queenie Martin ANP 230 [place] [address] Nurse Triage Social History Tobacco Use Types Packs/Day Years [...] encounter Miscellaneous Notes * Telephone Encounter - Darlin Sheth RN - 02/06/2025 1:41 PM EDT Triage call Pt reports cough for 2 weeks now with nasal congestion. Cough is producing yellow-greenphlegm and nasal drainage is yellow in color. Pt reports becoming breathless with coughing at times with some wheezing and is inquiring about whooping cough. Neg for fever. Pt does have dx of asthma. Pt is using albuterol inhaler 4-5x/daily. Abdominal soreness due to coughing continuously. Pt is advised to come to [facility] hours till 8pm today , 830am - 400pm tomorrow. Pt is advised to use cough drops, 1-2 tsp honey and increase liquids including warm drinks. Pt agrees with disposition and home care advised. Insurance is verified as active. Protocol Used: Cough (Adult) Protocol-Based Disposition: See in Office or Video Visit Today or Tomorrow Video visit not offered Positive Triage Questions: * Continuous (nonstop) coughing interferes with work or school and no improvement using cough treatment per Care Advice * Patient wants to be seen * All higher-acuity triage questions were negative Care Advice Discussed: * Reassurance and Education - Cough * Cough Medicines * Coughing Spells * Prevent Dehydration * Reasons To Call Back - Difficulty breathing - Cough lasts more than 3 weeks - Fever lasts more than 3 days - You become worse * Telephone Encounter - Karin Chyna Morton - 02/06/2025 1:19 PM EDT Symptom: Cough Outcome: Talk to a nurse or provider within 15 minutes Reason: Any trouble breathing through the mouth The caller accepted this outcome. [phone] documented in this encounter Plan of Treatment Upcoming Encounters Date Type Department Care Team (Late st Contact Info) Description 09/19/2025 3:00 PM EDT Clinical Support [facility] MED & PEDS 505 [place] [address] Beba Cortez, RN 505 [place] [address] 10/08/2025 2:15 PM EST Office Visit [facility] MEDICINE 230 [place] [address] Queenie Martin ANP 230 [place] [address] documented as of this encounter Visit Diagnoses Not on filedocumented in this encounter Additional Health Concerns Assessment Noted Time PHQ-9 Depression Total Score: 6 04/20/20 24 1:23 PM EDT documented as of this encounter Care Teams Leg Man Relationship Specialty Start Date End Date Queenie Martin ANP [address] [place] [address] PCP - General Family Medicine 05/09/20 documented as of this encounter
--- OUTSIDE RECORDS SUMMARY | 2025-09-06 18:23 | XMS_ITS | Encounter Summary ---
Author Organization [employer] Address [address] [facility] 7t [place] [address] Care Team Providers Care Biochemistry Professor Name Role Phone Queenie Martin Primary Care Provider [phone] Reason for Visit * Reason Onset Date Comments Appointment Request 03/19/2025 Encounter Details Date Type Department Care Team ([facility] st Contact Info) Description 03/19/2025 Telephone [facility] MEDICINE 230 [place], [place] [phone] Queenie Martin ANP 230 [place], [place] [phone] Appointment Request Social History Tobacco Use Types [...] encounter Miscellaneous Notes * Telephone Encounter - Forrest Gutiérrez - 03/19/2025 2:11 PM EDT TC from pt requesting to R/s appt from 03/15/25. Contact pt at [phone] documented in this encounter Plan of Treatment Upcoming Encounters Date Type Department Care Team (Late st Contact Info) Description 09/19/2025 3:00 PM EDT Clinical Support [facility] CHC MED & PEDS 505 [place] [address] Beba Cortez, RN 505 [place] [address] 10/08/2025 2:15 PM EST Office Visit [facility] MEDICINE 230 [place] [address] Queenie Martin ANP [address] [place] [address] documented as of this encounter Visit Diagnoses Not on filedocumented in this encounter Additional Health Concerns Assessment Noted Time PHQ-9 Depression Total Score: 6 04/20/20 24 1:23 PM EDT documented as of this encounter Care Teams Biochemistry Professor Relationship Specialty Start Date End Date Queenie Martin ANP 230 [place] [address] PCP - General Family Medicine 05/09/20 documented as of this encounter
--- OUTSIDE RECORDS SUMMARY | 2025-09-06 18:23 | XMS_ITS | Encounter Summary ---
Author Organization [employer] Address [address] 7[address] [place] [address] Care Team Providers Care Plant Ecologist Name Role Phone Queenie Martin Primary Care Provider [phone] Encounter Details Date Type Department Care Team (Late st Contact Info) Description 02/25/2023 Orders Only [facility] MEDICINE [address] [place] [address] Queenie Martin ANP 230 [place] [address] Social History Tobacco Use Types Packs/Day Years Used Date Smoking Tobacco: Never Assessed Comments Unknown Sex and Gender Information Value [...] Description 09/19/2025 3:00 PM EDT Clinical Support [facility] CHC MED & PEDS 505 [place], [place] [phone] Beba Cortez, FABIEN 505 [place], [place] [phone] 10/08/2025 2:15 PM EST Office Visit [facility] MEDICINE [address] [place] [address] Queenie Martin ANP 230 [place] [address] documented as of this encounter Visit Diagnoses Not on filedocumented in this encounter Care Teams Plant Ecologist Relationship Specialty Start Date End Date Queenie Martin ANP 230 [facility] [place] [address] PCP - General Family Medicine 05/09/20 documented as of this encounter
--- OUTSIDE RECORDS SUMMARY | 2025-09-06 18:23 | XMS_ITS | Encounter Summary ---
Author Organization [employer] Address [address] [facility] [address] 7t [place] [address] Care Team Providers Care Interrelated Special Education Teacher Name Role Phone Queenie Martin Primary Care Provider [phone] Reason for Visit * Reason Onset Date Comments Med Refill 07/27/2023 Encounter Details Date Type Department Care Team (Late st Contact Info) Description 07/27/2023 Telephone [facility] MEDICINE 230 [place] [address] Queenie Martin ANP 230 [place], [place] [phone] Med Refill Social History Tobacco Use Types Packs/Day Years Used Date Smoking Tobacco: Never Smokeless Tobacco: Never Alcohol Use Standard Drinks/Week Comments Not Currently 0 (1 standard drink = 0.6 oz pur e alcohol) Depression Answer Date Recorded Patient Health Questionnaire-9 Score 17 03/29/2023 Depression Answer Date Recorded Patient Health Questionnaire-2 Score 4 03/29/2023 Comments Unknown Sex and Gender Information Value Date Recorded Sex Assigned at Female 09/20/2022 10:19 AM EDT Legal Sex Female 10:19 AM EDT Gender Identity Female 09/20/2022 10:19 AM EDT Sexual Orientation Straight 09/20/2022 10 :19 AM EDT documented as of this encounter Miscellaneous Notes * Telephone Encounter - Darline Tanesha - 07/27/2023 10:37 AM EDT Tc from pt requesting med refill for medication HYDROcodone-acetaminophen (Jane Lew) 10-325 MG tablet. documented in this encounter Plan of Treatment Upcoming Encounters Date Type Department Care Team (Late st Contact Info) Description 09/19/2025 3:00 PM EDT Clinical Support [facility] MED & PEDS 505 [place] [address] Beba Cortez, RN 505 [place] [address] 10/08/2025 2:15 PM EST Office Visit [facility] MEDICINE 230 [place] [address] Queenie Martin ANP 230 [place] [address] documented as of this encounter Visit Diagnoses Not on filedocumented in this encounter Additional Health Concerns Assessment Noted Time PHQ-9 Depression Total Score: 17 023 2:16 PM EDT documented as of this encounter Care Teams Interrelated Special Education Teacher Relationship Specialty Start Date End Date Queenie Martin ANP [address] [place] [address] PCP - General Family Medicine 05/09/20 documented as of this encounter
--- OUTSIDE RECORDS SUMMARY | 2025-09-06 18:23 | XMS_ITS | Encounter Summary ---
Author Organization [employer] Address [address] [address] 7t [place] [address] Care Team Providers Care Electron Microscopist Name Role Phone Queenie Martin Primary Care Provider [phone] Reason for Visit * Reason Onset Date Comments Med Refill 05/31/2023 Encounter Details Date Type Department Care Team (Late st Contact Info) Description 05/31/2023 Telephone [facility] MEDICINE 230 [place] [address] Queenie Martin ANP 230 [place], [place] [phone] Med Refill Social History Tobacco Use Types [...] encounter Miscellaneous Notes * Telephone Encounter - Tania Suhas - 05/31/2023 4:17 PM EDT Tc from pt requesting medication refill on HYDROcodone-acetaminophen ([place]) 10- 325 MG tablet documented in this encounter Plan of Treatment Upcoming Encounters Date Type Department Care Team (Late st Contact Info) Description 09/19/2025 3:00 PM EDT Clinical Support [facility] MED & PEDS 505 [place] [address] Beba Cortez, RN 505 [place] [address] 10/08/2025 2:15 PM EST Office Visit [facility] MEDICINE 230 [place] [address] Queenie Martin ANP 230 [place] [address] documented as of this encounter Visit Diagnoses Not on filedocumented in this encounter Additional Health Concerns Assessment Noted Time PHQ-9 Depression Total Score: 17 023 2:16 PM EDT documented as of this encounter Care Teams Electron Microscopist Relationship Specialty Start Date End Date Queenie Martin ANP [address] [place] [address] PCP - General Family Medicine 05/09/20 documented as of this encounter
--- OUTSIDE RECORDS SUMMARY | 2025-09-06 18:23 | XMS_ITS | Encounter Summary ---
Author Organization [employer] Address [address] [place] [address] Care Team Providers Care Financial Compliance Examiner Name Role Phone Queenie Martin Primary Care Provider [phone] Reason for Visit * Reason Onset Date Comments Appointment Request 07/21/2023 Encounter Details Date Type Department Care Team (Late st Contact Info) Description 07/21/2023 Telephone [facility] MEDICINE 230 [place] [address] Queenie Martin ANP 230 [place], [place] [phone] Appointment Request Social History Tobacco Use Types [...] encounter Miscellaneous Notes * Telephone Encounter - Eden Welch RN - 07/21/2023 3:52 PM EDT PCP notified of scheduling issues * Telephone Encounter - Jammie Macias - 07/21/2023 3:50 PM EDT Tc from patient calling to r/s STRIPPING MACHINE OPERATOR appt from 07/20/23. Details: STRIPPING MACHINE OPERATOR RV documented in this encounter Plan of Treatment Upcoming Encounters Date Type Department Care Team (Late st Contact Info) Description 09/19/2025 3:00 PM EDT Clinical Support [facility] CHC MED & PEDS 505 [place] [address] Beba Cortez, RN 505 [place] [address] 10/08/2025 2:15 PM EST Office Visit [facility] MEDICINE 230 [place] [address] Queenie Martin ANP 230 [place] [address] documented as of this encounter Visit Diagnoses Not on filedocumented in this encounter Additional Health Concerns Assessment Noted Time PHQ-9 Depression Total Score: 17 023 2:16 PM EDT documented as of this encounter Care Teams Financial Compliance Examiner Relationship Specialty Start Date End Date Queenie Martin ANP [address] [place] [address] PCP - General Family Medicine 05/09/20 documented as of this encounter
--- OUTSIDE RECORDS SUMMARY | 2025-09-06 18:23 | XMS_ITS | Encounter Summary ---
Author Organization [employer] Address [address] [place] [address] Care Team Providers Care Melting Supervisor Name Role Phone Queenie Martin Primary Care Provider [phone] Reason for Visit * Reason Onset Date Comments Med Refill 09/23/2023 Encounter Details Date Type Department Care Team (Late st Contact Info) Description 09/23/2023 Telephone [facility] MEDICINE 230 [place], [place] [phone] Queenie Martin ANP 230 [place], [place] [phone] Med Refill Social History Tobacco Use Types Packs/Day Years Used Date Smoking Tobacco: Never Smokeless Tobacco: Never Alcohol Use Standard Drinks/Week Comments Not Currently 0 (1 standard drink = 0.6 oz pur e alcohol) Depression Answer Date Recorded Patient Health Questionnaire-9 Score 17 03/29/2023 Housing Stability Answer Date Recorded What is your housing situation today? I have nir garibay 09/12/[address] you li ve. Do you have problems with any of the following? None of the above 09/12/2023 Food Insecurity Answer Date Recorded Within the past 12 months, y ou worried that your food would run out before you got money to buy more: Never True 09/12/2023 Within the past 12 months,th e food you bought just didn't last and you didn't have enough money to get more: Never True Transportation Answer Date Recorded In the past 12 months, has l ack of transportation kept you from medical appts, meetings, work or from getting things needed for daily living? No 09/12/2023 Utilities Answer Date Recorded In the past 12 months, has t he electric, gas, oil or water company threatened to shut off services in your home? No 09/12/2023 Depression Answer Date Recorded Patient Health Questionnaire-2 Score 4 03/29/2023 Comments Unknown Sex and Gender Information Value Date Recorded Sex Assigned at Female 09/20/2022 10:19 AM EDT Legal Sex Female 10:19 AM EDT Gender Identity Female 09/20/2022 10:19 AM EDT Sexual Orientation Straight 09/20/2022 10 :19 AM EDT documented as of this encounter Miscellaneous Notes * Telephone Encounter - Tiburcio Cox - 09/23/2023 10:08 AM EDT Tc from patient requesting medication refill for HYDROcodone-acetaminophen ([place]) 10-325 MG tablet. documented in this encounter Plan of Treatment Upcoming Encounters Date Type Department Care Team (Late st Contact Info) Description 09/19/2025 3:00 PM EDT Clinical Support [facility] MED & PEDS 505 [place] [address] Beba Cortez, RN 505 [place] [address] 10/08/2025 2:15 PM EST Office Visit [facility] MEDICINE [address] [place] [address] Queenie Martin ANP 230 [place] [address] documented as of this encounter Visit Diagnoses Not on filedocumented in this encounter Additional Health Concerns Assessment Noted Time PHQ-9 Depression Total Score: 17 023 2:16 PM EDT documented as of this encounter Care Teams Melting Supervisor Relationship Specialty Start Date End Date Queenie Martin ANP [address] [place] [address] PCP - General Family Medicine 05/09/20 documented as of this encounter
--- OUTSIDE RECORDS SUMMARY | 2025-09-06 18:23 | XMS_ITS | Encounter Summary ---
Author Organization [employer] Address [address] [facility] [address] 7t [place] [address] Care Team Providers Care Blue Crabber Name Role Phone Queenie Martin Primary Care Provider [phone] Reason for Visit * Reason Onset Date Comments Appointment Request 10/06/2023 Encounter Details Date Type Department Care Team ([facility] st Contact Info) Description 10/06/2023 Telephone [facility] MEDICINE 230 [place], [place] [phone] Queenie Martin ANP 230 [place], [place] [phone] Appointment Request Social History Tobacco Use Types [...] * Telephone Encounter - Tiburcio Cox - 10/06/2023 11:52 AM EST Tc from patient requesting to make a appt from missed appt on 10/06 at 11:00 was under the impression appt was for 10/07 documented in this encounter Plan of Treatment Upcoming Encounters Date Type Department Care Team (Late st Contact Info) Description 09/19/2025 3:00 PM EDT Clinical Support [facility] CHC MED & PEDS 505 [place] [address] Beba Cortez, RN 505 [place] [address] 10/08/2025 2:15 PM EST Office Visit [facility] MEDICINE 230 [place] [address] Queenie Martin ANP 230 [place] [address] documented as of this encounter Visit Diagnoses Not on filedocumented in this encounter Additional Health Concerns Assessment Noted Time PHQ-9 Depression Total Score: 17 023 2:16 PM EDT documented as of this encounter Care Teams Blue Crabber Relationship Specialty Start Date End Date Queenie Martin ANP [address] [place] [phone] PCP - General Family Medicine 6/19/20 documented as of this encounter
--- OUTSIDE RECORDS SUMMARY | 2025-09-06 18:23 | XMS_ITS | Encounter Summary ---
Author Organization [employer] Address [address] 7t [place] [address] Care Team Providers Care Special Delivery Messenger Name Role Phone Queenie Martin Primary Care Provider [phone] Reason for Visit * Reason Onset Date Comments Status Check 09/02/2025 Encounter Details Date Type Department Care Team (Late st Contact Info) Description 09/02/2025 Telephone [facility] MEDICINE 230 [place] [address] Jazmín Kaye RN Status Check Social History Tobacco Use Types Packs/Day Years [...] encounter Miscellaneous Notes * Telephone Encounter - Jazmín Kaye RN - 09/03/2025 3:42 PM EDT Return call from the pt in regards to checking on current status and seeing if the pt had presentedto the ED or UC. The pt stated to RN I am not doing well and I know that I have to be seen, I am coming to the [facility], I know Queenie is concerned about me and I know I can't let my symptoms continue . RN advised the pt that the [facility] is open later today and the last appointment is scheduling at 740 PM. Pt was agreeable to this information and will come to [facility] for a respiratory distress (cough, wheeze) * Telephone Encounter - Jazmín Kaye RN - 09/03/2025 3:21 PM EDT TC placed to the pt and LVM to call back the office to check and see if pt was seen at the ED/UC * Telephone Encounter - Jazmín Kaye RN - 09/02/2025 4:11 PM EDT Images from the original note were not included. TC placed to the pt in regard to PCP message below and checking on the status of the pt current breathing status. Audibly over the phone the pt presented with a chronic cough and expiatory wheezing. The pt was able to speak in full and complete sentences and did not gasp for air. The pt confirmed that she has been using her home nebulizer machine and all inhalers with decent effect noted. While the medication does help ease the respiratory distress this only lasts for a short while. The pt is scheduled to see [facility] Pulmonology on 09/12/2025 and confirmed knowledge of this appointment. The pt was strongly advised to be seen at the ED, [facility], or schedule a sick onsite for evaluation of current cough/wheeze. The pt did state that she will be going on Monday 09/03. This encounter will remain in the in box. [facility] [place] [place] Team Nurses Md team - can someone please reach out to Bal[facility]zar for a status check re: asthma/breathing issues? LastI spoke with her I very strongly advised she go to ED. Did she go? If so, please request notes. If continues with difficulty breathing please again reinforce need for ED evaluation. documented in this encounter Plan of Treatment Upcoming Encounters Date Type Department Care Team (Late st Contact Info) Description 09/19/2025 3:00 PM EDT Clinical Support [facility] MED & PEDS 505 [place] [address] Beba Cortez, RN 505 [place] [address] 10/08/2025 2:15 PM EST Office Visit [facility] MEDICINE 230 [place] [address] Queenie Martin ANP 230 [place] [address] documented as of this encounter Visit Diagnoses Not on filedocumented in this encounter Additional Health Concerns Assessment Noted Time PHQ-9 Depression Total Score: 17 0516/2 025 2:34 PM EDT documented as of this encounter Care Teams Special Delivery Messenger Relationship Specialty Start Date End Date Queenie Martin ANP [address] [place] [address] PCP - General Family Medicine 05/09/20 documented as of this encounter
--- OUTSIDE RECORDS SUMMARY | 2025-09-06 18:23 | XMS_ITS | Clinical Summary ---
Author Organization [address] [facility] Address 175 [place] [address] Phone Care Team Providers Care Welder Fitter Name Role Phone VeronicaQueenie JAD Primary Care Provider [phone] Medications blood pressure monitor (Blood Pressure Kit) kit 1 kit by Not Applicable route daily. 4 Active albuterol 2.5 mg /3 mL (0.083 %) nebulizer solution 3 mL (2.5 mg total) every 6 hours as needed. 5 02/09/20 26 Active amLODIPine (NORVASC) 10 mg tablet Take 1 tablet (10 mg total) by mouth 1 (one) time each day. Active Eliquis 5 mg tablet Take 1 tablet (5 mg total) by mouth 2 times daily. 5 Active atorvastatin (LIPITOR) 40 mg tablet Take 1 tablet (40 mg total) by mouth daily. 5 Active carvediloL (COREG) 12.5 mg tablet TAKE 1 TABLET (12.5 MG) BY MOUTH WITH BREAKFAST AND WITH EVENING MEAL. TAKE WITH FOOD. Active cetirizine (ZyrTEC) 10 mg tablet take 1 tablet by mouth once daily as needed for allergy 5 Active cholecalciferol (VITAMIN D-3) 50 mcg (2,000 unit) capsule Take 1 capsule (2,000 Units total) by mouth 1 (one) time each day. 3 Active Jardiance 10 mg tablet Take 1 tablet (10 mg total) by mouth 1 (one) time each day. 5 Active fexofenadine (ANY) 180 mg tablet Take 1 tablet (180 mg total) by mouth. 5 Active fluocinonide (LIDEX) 0.05 % ointment Apply topically 2 times daily. 5 Active fluticasone propionate (FLONASE) 50 mcg/actuation nasal spray 2 Active Advair HFA 115-21 mcg/actuation inhaler PLEASE SEE ATTACHED FOR DETAILED DIRECTIONS 5 Active gabapentin (NEURONTIN) 100 mg capsule TAKE 1 CAPSULE BY MOUTH EVERY DAY FOR 1 WEEK. THEN TWICE DAILY FOR 1 WEEK, THEN 3 TIMES DAILY Active HYDROcodone-eduardo taminophen (NORCO) 10-325 mg per tablet Take 1 tablet by mouth every 8 hours as needed. Max Daily Amount: 3 tablets 5 Active hydrOXYzine HCL (ATARAX) 25 mg tablet Take 1 tablet (25 mg total) by mouth every 6 hours. Active levalbuterol (XOPENEX) 1.25 mg/3 mL nebulizer solution INHALE 1 VIAL USING NEBULIZER EVERY FOUR TO SIX HOURS NEEDED 3 Active losartan (COZAAR) 100 mg tablet Take 1 tablet (100 mg total) by mouth daily. 5 Active melatonin 3 mg tablet 2 Active metFORMIN (GLUCOPHAGE) 500 mg tablet TAKE 2 TABLETS BY MOUTH TWICE DAILY IN THE MORNING AND EVENING WITH MEALS 5 Active mirabegron (Myrbetriq) 25 mg 24 hr tablet 3 Active montelukast (SINGULAIR) 10 mg tablet Take 1 tablet (10 mg total) by mouth 1 (one) time each day in the evening. Active naloxone (NARCAN) 4 mg/0.1 mL nasal spray FOR SUSPECTED OPIOID OVERDOSE. SPRAY 0.1mL IN ONE NOSTRIL. REPEAT IN ALTERNATE NOSTRIL 2-3 MINUTES IF NEEDED. SEEK MEDICAL ATTENTION IMMEDIATELY EVEN IF PATIENT RESPONDS. Active olopatadine (PATANOL) 0.1 % ophthalmic solution INSTILL 1 DROP INTO THE AFFECTED EYE(S) TWICE DAILY 5 Active oxyBUTYnin XL (DITROPAN-XL) 10 mg 24 hr tablet Take 1 tablet (10 mg total) by mouth daily. 3 Active predniSONE (DELTASONE) 20 mg tablet Take 2 tablets (40 mg total) by mouth 1 (one) time each day. for 5 days 5 Active sotalol AF (BETAPACE AF) 80 mg tablet Take 0.5 tablets (40 mg total) by mouth 2 (two) times a day. Active tacrolimus (PROTOPIC) 0.1 % ointment 3 Active clotrimazole (LOTRIMIN) 1 % cream Apply topically 2 (two) times a day. 30 g 3 5 08/22/20 25 Encounters Date Type Department Care Team Description 07/23/2025 1:45 PM EDT Office Visit Orthopedic Surgery [place] [address] [phone] Julio César Espinoza DPM Diabetic mononeuropathy simplex ([facility] V24, [facility] V28) (Primary Dx); Type 2 diabetes mellitus with other specified complication ([facility] V24, [facility] V28); Dermatophytosis of nail; Pain in toe of right foot; Pain in toe of left foot from Last 3 Months Social History Tobacco Use Types Packs/Day Years Used Date Smoking Tobacco: Never Assessed Comments Unknown Sex and Gender Information Value Date Recorded Sex Assigned at Not on file Legal Sex Female 10:29 PM EST Gender Identity Not on file Sexual Orientation Not on file Plan of Treatment Upcoming Encounters Date Type Department Care Team ([facility] st Contact Info) Description 10/22/2025 1:45 PM EST Office Visit Orthopedic [facility] [address] [phone] Julio César Espinoza DPM [address] [phone] Health Maintenance Due Date Last Done Comments Breast Cancer Screening 1959 Colorectal Cancer Screening: Colonoscopy 1959 Diabetes: Annual GFR (Glomerular Filtration Rate) 1959 Diabetes: Annual Foot Exam 1969 Diabetes: Annual Retina Eye Exam 1969 Cervical Cancer Screening: Pap Smear 1980 RSV Immunization Adult Patients (1 - Risk 50-74 years 1-dose series) 2009 Zoster Vaccines (1 of 2) 2009 DTaP,Tdap,and Td Vaccines (3 - Td or Tdap) 10/08/2023 10/08/2013, 07/21/2009 Depression Screening 11/21/2024 Falls Risk Assessment 04/23/2025 Hepatitis C Screening 04/23/2025 Medicare Annual Wellness Visit 04/23/2025 Osteoporosis Screening (Bone Density Screening) 04/23/2025 Social Influencers of Health Screening 04/23/2025 COVID-19 Vaccine ( season) 2025 Influenza Vaccine (#1) 2025 , 08/19/2021, 12/12/2019, Additional history exists Diabetes: Annual Urine Albumin-Creatinine Ratio (uACR) 07/23/2025 Hypertension/CHF/CAD Annual BMP Blood Test 07/23/2025 Diabetes: Blood Sugar Control Test (HGBA1C) 01/16/2026 07/16/2025 Cholesterol Screening (Lipid Panel) 03/12/2027 03/12/2022 Pneumococcal Vaccine: 50+ Years Completed 12/23/2023, 07/21/2009 HIB Vaccines Aged Out No longer eligi [...] on patient's age to complete this topic MMR Vaccines Aged Out No longer eligi ble based on patient's age to complete this topic Meningococcal ACWY Vaccine Aged Out N o longer eligible based on patient's age to complete this topic Meningococcal B Vaccine Aged Out No l onger eligible based on patient's age to complete this topic RSV Immunization Patients Under 20 months Aged Out No longer eligible based on patient's age to complete this topic Varicella Vaccines Aged Out No longer eligible based on patient's age to complete this topic Insurance MEDICARE MEDICAID - [place] Care Teams Welder Fitter Relationship Specialty Start Date End Date Queenie Martin NP [address] [place] [phone] PCP - General 12/28/23
--- OUTSIDE RECORDS SUMMARY | 2025-09-06 18:23 | XMS_ITS | Encounter Summary ---
Author Organization [employer] Address [address] [facility] [address]t [place] [address] Care Team Providers Care Waxer Operator Name Role Phone Queenie Martin Primary Care Provider [phone] Reason for Visit * Reason Comments Med Change Request Encounter Details Date Type Department Care Team ([facility] st Contact Info) Description 04/09/2025 Refill [facility] MEDICINE 230 [place], [place] [phone] Queenie Martin ANP 230 [place] [address] Moderate persistent asthma without complication Social History Tobacco Use Types Packs/Day Years [...] Description 09/19/2025 3:00 PM EDT Clinical Support [facility] CHC MED & PEDS 505 [place] [address] Beba Cortez, RN 505 [place] [address] 10/08/2025 2:15 PM EST Office Visit [facility] MEDICINE [address] [place] [address] Queenie Martin ANP [address] [place] [address] documented as of this encounter Visit Diagnoses Diagnosis Moderate persistent asthma without complication documented in this encounter Additional Health Concerns Assessment Noted Time PHQ-9 Depression Total Score: 17 025 2:34 PM EDT documented as of this encounter Care Teams Waxer Operator Relationship Specialty Start Date End Date Queenie Martin ANP [address] [place] [address] PCP - General Family Medicine 05/09/20 documented as of this encounter
--- OUTSIDE RECORDS SUMMARY | 2025-09-06 18:23 | XMS_ITS | Encounter Summary ---
Author Organization [employer] Address [address] [facility] 7t [place] [address] Care Team Providers Care Stainless Steel Finisher Name Role Phone Queenie Martin Primary Care Provider [phone] Reason for Visit * Reason Onset Date Comments Med Refill 08/24/2023 Encounter Details Date Type Department Care Team (Late st Contact Info) Description 08/24/2023 Telephone [facility] MEDICINE 230 [place] [address] Queenie Martin ANP 230 [place], [place] [phone] Med Refill Social History Tobacco Use Types [...] * Telephone Encounter - Darline Tanesha - 08/24/2023 1:54 PM EDT Tc from pt requesting med refill for medication HYDROcodone-acetaminophen ([place]) 10-325 MG tablet. documented in this encounter Plan of Treatment Upcoming Encounters Date Type Department Care Team (Late st Contact Info) Description 09/19/2025 3:00 PM EDT Clinical Support [facility] MED & PEDS 505 [place] [address] Beba Cortez, RN 505 [place] [address] 10/08/2025 2:15 PM EST Office Visit [facility] MEDICINE [address] [place] [address] Queenie Martin ANP [address] [place] [address] documented as of this encounter Visit Diagnoses Not on filedocumented in this encounter Additional Health Concerns Assessment Noted Time PHQ-9 Depression Total Score: 17 023 2:16 PM EDT documented as of this encounter Care Teams Stainless Steel Finisher Relationship Specialty Start Date End Date Queenie Martin ANP [address] [place] [address] PCP - General Family Medicine 05/09/20 documented as of this encounter
--- OUTSIDE RECORDS SUMMARY | 2025-09-06 18:23 | XMS_ITS | Encounter Summary ---
Author Organization [employer] Address [address] [facility] [facility] [address] 7t [place] [address] Care Team Providers Care Vehicle Detailer Name Role Phone Queenie Martin Primary Care Provider [phone] Reason for Visit * Reason Comments Med Refill Encounter Details Date Type Department Care Team (Late st Contact Info) Description 12/06/2023 Refill [facility] MEDICINE 230 [place], [place] [phone] Queenie Martin ANP [address] [place] [address] Benign hypertension Social History Tobacco Use Types Packs/Day Years [...] Description 09/19/2025 3:00 PM EDT Clinical Support [facility] CHC MED & PEDS 505 [place] [address] Beba Cortez, RN 505 [place] [address] 10/08/2025 2:15 PM EST Office Visit [facility] MEDICINE 230 [place] [address] Queenie Martin ANP [address] [place] [address] documented as of this encounter Visit Diagnoses Diagnosis Benign hypertension Essential hypertension, benign documented in this encounter Additional Health Concerns Assessment Noted Time PHQ-9 Depression Total Score: 17 023 2:16 PM EDT documented as of this encounter Care Teams Vehicle Detailer Relationship Specialty Start Date End Date Queenie Martin ANP [address] [place] [address] PCP - General Family Medicine 05/09/20 documented as of this encounter
--- OUTSIDE RECORDS SUMMARY | 2025-09-06 18:23 | XMS_ITS | Encounter Summary ---
Author Organization [employer] Address [address] [facility] [address] [address] 7t [place] [address] Care Team Providers Care Telecom Manager Name Role Phone Queenie Martin Primary Care Provider [phone] Reason for Visit * Reason Onset Date Comments Med Refill 05/14/2025 Encounter Details Date Type Department Care Team (Late st Contact Info) Description 05/14/2025 Telephone [facility] MEDICINE 230 [place], [place] [phone] Queenie Martin ANP 230 [place], [place] [phone] Med Refill Social History Tobacco Use Types [...] * Telephone Encounter - Donte Rivera - 05/14/2025 1:14 PM EDT TC from pt requesting medication refill. Medications needing refill: HYDROcodone-acetaminophen ([place]) 10-325 MG tablet To be sent to: [facility] - [place], [place] - [address] [place] [address] documented in this encounter Plan of Treatment Upcoming Encounters Date Type Department Care Team ([facility] st Contact Info) Description 09/19/2025 3:00 PM EDT Clinical Support [facility] CHC MED & PEDS 505 [place] [address] Beba Cortez, FABINE 505 [place] [address] 10/08/2025 2:15 PM EST Office Visit [facility] MEDICINE 230 [place] [address] Queenie Martin ANP 230 [place] [address] documented as of this encounter Visit Diagnoses Not on filedocumented in this encounter Additional Health Concerns Assessment Noted Time PHQ-9 Depression Total Score: 17 025 2:34 PM EDT documented as of this encounter Care Teams Telecom Manager Relationship Specialty Start Date End Date Queenie aMrtin ANP 230 [place] [address] PCP - General Family Medicine 05/09/20 documented as of this encounter
--- OUTSIDE RECORDS SUMMARY | 2025-09-06 18:24 | XMS_ITS | Encounter Summary ---
Author Organization [employer] Address [address] [facility] [address] 7t [place] [address] Care Team Providers Care Online Marketing Director Name Role Phone Queenie Martin Primary Care Provider [phone] Reason for Visit * Reason Comments Med Change Request Encounter Details Date Type Department Care Team ([facility] st Contact Info) Description 04/08/2025 Refill [facility] MEDICINE 230 [place], [place] [phone] Queenie Martin ANP 230 [place] [address] Moderate persistent asthma without complication Social History [...] Description 09/19/2025 3:00 PM EDT Clinical Support [facility] CHC MED & PEDS 505 [place] [address] Beba Cortez, RN 505 [place] [address] 10/08/2025 2:15 PM EST Office Visit [facility] MEDICINE [address] [place] [address] Queenie Martin ANP [address] [place] [address] documented as of this encounter Visit Diagnoses Diagnosis Moderate persistent asthma without complication documented in this encounter Additional Health Concerns Assessment Noted Time PHQ-9 Depression Total Score: 17 025 2:34 PM EDT documented as of this encounter Care Teams Online Marketing Director Relationship Specialty Start Date End Date Queenie Martin ANP [address] [place] [address] PCP - General Family Medicine 05/09/20 documented as of this encounter
--- OUTSIDE RECORDS SUMMARY | 2025-09-06 18:24 | XMS_ITS | Encounter Summary ---
Author Organization [employer] Address [address] [facility] [address] [facility] [address] [place] [address] Care Team Providers Care Shearer Screen Measurer And Trimmer Name Role Phone Queenie Martin Primary Care Provider [phone] Reason for Visit * Reason Comments Med Refill Encounter Details Date Type Department Care Team (Late st Contact Info) Description 11/09/2023 Refill [facility] MED & PEDS [address] [place] [address] Queenie Martin ANP 230 [place] [address] Moderate persistent asthma without complication Social History [...] 3:00 PM EDT Clinical Support [facility] MED & PEDS 505 [place] [address] Beba Cortez, FABIEN 505 [place] [address] 10/08/2025 2:15 PM EST Office Visit [facility] MEDICINE 230 [place] [address] Queenie Martin ANP 230 [place] [address] documented as of this encounter Visit Diagnoses Diagnosis Moderate persistent asthma without complication documented in this encounter Additional Health Concerns Assessment Noted Time PHQ-9 Depression Total Score: 17 023 2:16 PM EDT documented as of this encounter Care Teams Shearer Screen Measurer And Trimmer Relationship Specialty Start Date End Date Queenie Martin ANP [address] [place] [address] PCP - General Family Medicine 05/09/20 documented as of this encounter
[2025-09-06 18:52] LABS: Microalbum/Creatinine Ratio Ur 80.4 ug/mg cr (<30)
[2025-09-06 18:56] LABS: Alanine Aminotransferase 12 U/L (0-31); Albumin Level 4.2 g/dL (3.5-5.0); Alkaline Phosphatase 124 U/L (39-117); Anion Gap 14 (12-20); Aspartate Amino Transferase 22 U/L (5-31); Blood Urea Nitrogen 21 mg/dL (9-16); Calcium 9.3 mg/dL (8.4-10.2); Carbon Dioxide 28 mmol/L (22-29); Chloride 104 mmol/L (96-108); Cholesterol 219 mg/dL (<200); Estimated Glomerular Filt Rate > 60; HDL Cholesterol 57 mg/dL (>40); Potassium 3.6 mmol/L (3.3-5.1); Sodium 142 mmol/L (135-145); Total Protein 7.3 g/dL (6.5-8.0); Triglycerides 132 mg/dL (<150)
[2025-09-06 19:18] LABS: Vitamin B12 859 pg/mL (200-900)
== END 2025-09-06 16:10 | disposition home or self-care (01) ==
LOC: HO.HHCL 16:09
PROVIDERS: PCP Nurse Practitioner Primary Care; Visit Provider Internal Medicine
DX: I10 Essential (primary) hypertension (principal); E11.69 Type 2 diabetes mellitus with other specified complication; E78.5 Hyperlipidemia, unspecified; E55.9 Vitamin D deficiency, unspecified
CPT/HCPCS: 36415; 80053; 80061; 82043; 82306; 82570; 82607; 84443